=== PATIENT | female | born 1980 | race Caucasian/White ===

== ENCOUNTER 2020-11-14 12:05 | Emergency (ER) | payer OTHER, SELFPAY ==
[2020-11-14 12:54] VITALS: BP 159/89; PULSE 82; RESP 16; TEMP 36.9; O2SAT 100
--- NOTE | 2020-11-14 14:40 | ED.GENADULT ---
HPI - General Adult General Chief complaint: Unspecified Stated complaint: lump in back of neck Time Seen by Provider: 11/14/20 13:54 Source: patient and family Mode of arrival: ambulatory Limitations: no limitations History of Present Illness HPI narrative: Patient presents with chief complaint of swelling to the posterior left side of her neck which she noticed this morning. Patient states over the past few days she had spasms in her neck so she was applying sports creams and alternating heat and ice. Patient states that her muscle tension and spasms have resolved but this morning she noticed the swelling to the left lower side of her neck. Patient states it does not inhibit her range of motion nor is it painful. Patient does not have any other symptoms at this time. Patient reports having history of anxiety over the past year or so she becomes very concerned with abnormalities. Related Data Allergies Allergy/AdvReac Type Severity Reaction Status Date / Time ANTIBIOTIC? Allergy Mild Uncoded 10/13/09 00:24 Review of Systems Review of Systems: CONSTITUTIONAL: Denies fever, chills, or sweats. EYES: Denies visual changes, redness, or discharge. ENT: Denies rhinorrhea, congestion, sore throat, or otalgia. CARDIOVASCULAR: Denies chest pain, palpitations, or edema. RESPIRATORY: Denies cough or dyspnea. GASTROINTESTINAL: Denies abdominal pain, nausea, vomiting, or diarrhea. GENITOURINARY: Denies dysuria or hematuria. SKIN: Reports swelling denies rash or itching. MUSCULOSKELETAL: Denies back pain, joint pain, or myalgia. NEUROLOGIC: Denies headache, numbness, dizziness, or weakness. PSYCHIATRIC: Reports anxiety denies depression. Exam Narrative: GENERAL: Well-appearing, well-nourished, and in no acute distress. HEAD: Normocephalic, atraumatic. EYES: PERRLA and EOMI. NECK: Supple. Small pea sized mobile nontender lymph nodes of the left posterior cervical area. There is no erythema or increased warmth from the area. Range of motion normal and intact. CHEST: Clear to auscultation. No respiratory distress. No wheezes rales or rhonchi HEART: Regular rate and rhythm. No murmur heard. EXTREMITIES: Normal range of motion. No edema. SKIN: Warm, dry, no rash. NEURO: No focal deficits. Alert and oriented x3. PSYCH: patient is mildly anxious Course Vital Signs Vital signs: Vital Signs Temperature 98.4 F 11/14/20 12:54 Pulse Rate 82 11/14/20 12:54 Respiratory Rate 16 11/14/20 12:54 Blood Pressure 159/89 H 11/14/20 12:54 Pulse Oximetry 100 11/14/20 12:54 Temperature 98.4 F 11/14/20 12:54 Pulse Rate 82 11/14/20 12:54 Respiratory Rate 16 11/14/20 12:54 Blood Pressure 159/89 H 11/14/20 12:54 Pulse Oximetry 100 11/14/20 12:54 Medical Decision Making MDM Narrative Medical decision making narrative: Discussed with patient that she has a small lymph node enlarged in the area of concern. There is no signs of infection. There is possibly due to the treatments and applications to the area in relation to her neck spasms. Also discussed with patient that she states she has had anxiety over the past year since the of her best friend and her dog. She states anytime she finds something abnormal she is fearful that she is going to be sick and .She states her anxiety gets so bad when she is anxious she has had a few anxiety attacks from being fearful her findings will be cancer or some cause of . She does not have any symptoms or present illness other than increased swelling of lymph nodes. Discussed the importance of following up with primary care is discussed further maintenance and management of her grief and anxiety. Patient denies any suicidal or homicidal ideation. Vital Signs Vital Signs: Vital Signs Temperature 98.4 F 11/14/20 12:54 Pulse Rate 82 11/14/20 12:54 Respiratory Rate 16 11/14/20 12:54 Blood Pressure 159/89 H 11/14/20 12:54 Pulse Oximetry 100 11/14/20 12:54 Temperature 9
== END 2020-11-14 15:18 | disposition home or self-care (01) ==
PROVIDERS: Emergency Provider Emergency Medicine
DX: R59.9 Enlarged lymph nodes, unspecified (principal); F41.9 Anxiety disorder, unspecified
CPT/HCPCS: 99283